=== PATIENT | male | born 1965 | race Caucasian/White ===

== ENCOUNTER 2025-01-15 08:04 | Emergency (ER) | payer OTHER, SELFPAY ==
--- NOTE | ~2025-01-15 | XR_ITS ---
XR foot RT min 3V Ordering provider: JR Mai History: . redness, pain, swelling Rt 1st MTP; denies hx of gout . Comparison: None. FINDINGS: BONES: No acute fracture or dislocation. JOINT SPACES: Normal. No tarsal coalition. SOFT TISSUES: Soft tissue density seen opposite the first metatarsophalangeal joint. Calcaneal spur. Ossification of the insertion of the tendo Achilles. IMPRESSION: No acute osseous abnormality of the right foot. Soft tissue density seen at the area of the first metatarsophalangeal joint medially and on the plant ar aspect. Clinical correlation advised. Reviewed, dictated and finalized at location A. IMPRESSION: No acute osseous abnormality of the right foot. Soft tissue density seen at the area of the first metatarsophalangeal joint med ially and on the plantar aspect. Clinical correlation advised.
[2025-01-15 08:14] VITALS: BP 119/96; PULSE 86; RESP 16; TEMP 36.1; O2SAT 98
--- NOTE | 2025-01-15 08:15 | ED.EXTPRO ---
HPI - Extremity Problem General Chief complaint: Extremity Problem,Nontraumatic Stated complaint: Swollen Right Foot Patient presents to the [facility] with complaints of redness, swelling, and pain to right big toe that began about 2 days ago. No medications or remedies attempted for symptoms. Patient denies any injury but states he possibly could have hurt this on something. 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 denies any history of gout or DVT. Denies numbness or tingling in foot or toes. Related Data Home Medications ?Medication ?Instructions ?Recorded ?Confirmed ?Last Taken ?Type lisinopril 10 mg tablet mg 01/15/25 Unknown History meloxicam 15 mg tablet mg 01/15/25 Unknown History pantoprazole 40 mg tablet,delayed mg PO 01/15/25 Unknown History release rosuvastatin 5 mg tablet mg 01/15/25 Unknown History Allergies Allergy/AdvReac Type Severity Reaction Status Date / Time Sulfa (Sulfonamide Allergy Intermediate Hives Verified 01/15/25 08:12 Antibiotics) Review of Systems Constitutional: Constitutional: Reports no additional constitutional complaints, Denies chills, Denies fatigue, Denies fever(s) and Denies weakness Eyes: Eyes: Reports no additional eye complaints Cardiovascular: Cardiovascular: Reports no additional cardiovascular complaints Respiratory: Respiratory: Reports no additional respiratory complaints Gastrointestinal: Gastrointestinal: Reports no additional gastrointestinal complaints Genitourinary: Genitourinary: Reports no additional male genitourinary complaints Musculoskeletal: Musculoskeletal: Reports as per HPI, Reports arthralgias, Reports joint swelling and Denies muscle cramps Integumentary/Breasts: Skin/Breast: Reports as per HPI, Denies pruritus, Reports erythema, Denies rash and Denies skin ulcer Neurologic: Reports as per HPI, Denies numbness and Denies weakness Psychiatric: Psychiatric: Reports no additional psychiatric complaints Endocrine: Endocrine: Reports no additional endocrine complaints Hematologic/Lymphatic: Hematologic/Lymphatic: Reports no additional hematologic/lymphatic complaints Allergic/Immunologic: Allergic/Immunologic: Reports no additional allergic/immunologic complaints Exam Const: General: healthy appearing and no acute distress Nutritional Appearance: well nourished Orientation/consciousness: patient oriented x3 Limitations: no limitations Resp: Effort & Inspection: normal respiratory effort Auscultation: clear to auscultation bilaterally Cardio: Rhythm: regular rhythm Skin: Rashes: no rashes Wounds: no wounds Other: Diffuse erythema noted over right 1st metatarsal and dorsum of foot Neuro: General: patient oriented x3 Speech: normal speech Gait exam (Neuro): Normal gait present Extrem: Right lower extremity: foot Details: normal capillary refill, abnormal to inspection, tenderness Location: of the great toe, abnormal ROM of toe Details: pain with active ROM Location: of the great toe and pain with passive ROM Location: of the great toe, warmth Location: of the great toe, edema Location: of the great toe (mild ) Location: at the MTP joint and vascular exam Details: dorsalis pedis pulse present, posterior tibial pulse present and normal capillary refill Psych: Mental Status: mental status grossly normal Affect: normal affect Attitude: cooperative Course Course Level of Care: Express Care Visit Vital Signs Vital signs: Vital Signs Temperature 97 F L 01/15/25 08:14 Pulse Rate 86 01/15/25 08:14 Respiratory Rate 16 01/15/25 08:14 Blood Pressure 119/96 H 01/15/25 08:14 Pulse Oximetry 98 01/15/25 08:14 Temperature 97 F L 01/15/25 08:14 Pulse Rate 86 01/15/25 08:14 Respiratory Rate 16 01/15/25 08:14 Blood Pressure 119/96 H 01/15/25 08:14 Pulse Oximetry 98 01/15/25 08:14 MDM - Extremity (Nontraumatic) MDM Narrative Medical decision making narrative: spoke with patient appears to be gout in nature. Unsure of injury would like x-ray. Discharge instructions reviewed with patient, as well as provided in writing per nursing staff. The instructions also include specific and strict return/GO TO THE ER as well as f/u information. All questions have been answered, and the patient deny any further questions with discharge and discharge plan. Differential Diagnosis Differential diagnosis: Likely gout, cellulitis, superficial thrombophlebitis, lower extremity edema and other ( Fracture, contusion) Imaging Data Attestation: I personally reviewed and interpreted this imaging study as follows: My impression: No fracture abnormality Radiologist's impression: IMPRESSION: No acute osseous abnormality of the right foot. Soft tissue density seen at the area of the first metatarsophalangeal joint medially and on the plantar aspect. Clinical correlation advised. Reviewed, dictated and finalized at location A. Discharge Plan Discharge Clinical Impression: Gout Patient Disposition: Home Condition: Stable Instructions: Antibiotic Form, Low Purine Diet (ED), Gout (ED) Additional Instructions: call your primary care provider to see things at a uric acid to your upcoming labs. Take the prednisone as directed ensure to elevate and apply ice to your foot as much as possible. Patient Language: Bulgarian Prescriptions: New prednisone 50 mg tablet 50 mg PO DAILY Qty: 5 0RF No Action meloxicam 15 mg tablet pantoprazole 40 mg tablet,delayed release (DR/EC) PO lisinopril 10 mg tablet rosuvastatin 5 mg tablet Follow-up/Referrals: PHYSICIAN,CONSUMER RELATIONS COMPLAINT CLERK [Primary Care Provider] - Stand Alone Forms: Work/School Release IP Time of Disposition: 08:48
== END 2025-01-15 08:58 | disposition home or self-care (01) ==
PROVIDERS: Emergency Provider Nurse Practitioner Family
DX: M10.9 Gout, unspecified (principal); Z79.1 Long term (current) use of non-steroidal anti-inflammatories (NSAID)
CPT/HCPCS: 73630; 99213; G0463